=== PATIENT | female | born 1975 | race Caucasian/White ===

== ENCOUNTER → 2019-09-22 07:19 | Outpatient (CLI) | payer BC ==
[2019-09-22 09:28] LABS: BASOPHILS 0.4 % (0-2); EOSINOPHILS 1.6 % (0-7); HEMATOCRIT 41.3 % (36.0-48.0); HEMOGLOBIN 13.3 g/dL (12-16); IMMATURE GRANULOCYTES 0.1 % (0-5); LYMPHOCYTES 21.3 % (15-50); MCH 29.2 pg (26.0-34.0); MCHC 32.2 g/dL (31.0-37.0); MCV 90.6 fL (80.0-100.0); MEAN PLATELET VOLUME 9.2 fL (7.4-10.4); MONOCYTES 8.5 % (2-11); NEUTROPHILS 68.1 % (40-80); PLATELET COUNT 241 10x3/uL (130-400); RBC 4.56 10x6/uL (4.00-5.40); RDW 12.4 % (11.5-14.5); WBC 7.4 10x3/uL (4.8-10.8)
[2019-09-23 08:10] LABS: IMMUNOGLOBULIN A 205 mg/dL (87-352); IMMUNOGLOBULIN G 847 mg/dL (700-1600)
[2019-09-23 10:09] LABS: ANA REFLEX - DIRECT Negative (Negative)
[2019-09-24 17:07] LABS: IGG SUBCLASS 1 447 mg/dL (248-810); IGG SUBCLASS 2 250 mg/dL (130-555); IGG SUBCLASS 3 54 mg/dL (15-102); IGG SUBCLASS 4 18 mg/dL (2-96); IGGS - IGG SERUM 827 mg/dL (700-1600)
[2019-09-25 13:09] LABS: IMMUNOGLOBULIN E 21 IU/mL (6-495)
== END | disposition home or self-care (01) ==
LOC: D.RT 07:19 → D.RAD 08:30 → D.RT 09-25 09:30
PROVIDERS: ATTEND Internal Medicine Pulmonary Disease
DX: J18.9 Pneumonia, unspecified organism (principal); J44.9 Chronic obstructive pulmonary disease, unspecified; M06.9 Rheumatoid arthritis, unspecified; M32.9 Systemic lupus erythematosus, unspecified